=== PATIENT | female | born 1975 | race Caucasian/White ===

== ENCOUNTER 2023-08-30 14:54 | Inpatient (IN) ==
--- NOTE | 2023-08-30 16:03 | Emergency Department Note ---
Impression & Plan Anemia due to blood loss, chronic, Low mean corpuscular volume (MCV) ED Provider Note NAME: GUANAKO HARDEN AGE: 48 SEX: F : 1975 ARRIVES VIA: Walk-In INFORMANT: [Patient][, ] ED PROVIDER(S): [Pedrito Deshpande MD] CHIEF COMPLAINT: Outpatient referral, anemia MEDICAL DECISION MAKING: Patient presents as an outpatient referral due to concern for anemia. IV was established and blood was obtained. The patient is asymptomatic with the patient's hemoglobin today is less than 6. The patient was consented for blood the patient was amenable for inpatient treatment. Patient may have a cause of chronic blood loss anemia as the patient relates that she does have chronic heavy menstrual periods which can last for 7 days. I did speak the on-call hospitalist Dr. Johns and the patient was admitted to the medicine service. Blood work shows a normal white count with a hemoglobin of 5.8 the patient's platelet count is unremarkable. Kidney function unremarkable with normal electrolytes and LFTs troponin not elevated. Critical Care: I have personally spent 35 minutes of critical care time in direct management of this patient. This includes bedside care, interpretation of diagnostic studies, and testing, discussion with consultants, patient, and family members, and other require inpatient management activities. This 35 minutes is in excess of all separately billable procedures. Discussion w/ other healthcare providers: Dr. Johns with inpatient medicine Prior /Outside records reviewed: None Differential diagnosis: Blood loss anemia, iron deficiency anemia, GI bleeding, mass, menstrual period bleeding, nutritional deficiency Diagnostics, as interpreted by me: ECG: None Cardiac monitoring: An order was placed for continuous cardiac monitoring. The monitor shows a rate of 75 with sinus rhythm. Patient was placed on pulse oximetry Medical decision rules: None Imaging studies: None HPI: [Patient presents due to concern for abnormal outpatient blood work. The patient states that she was referred in by Dr. Sanon today due to concern for low hemoglobin. Patient denies any chest pains or shortness of breath. Patient denies any lightheadedness or dizziness. No recent falls or trauma. The patient does not take any blood thinning medications does not take NSAIDs or antiplatelets. Patient denies any rectal bleeding or dark stools. The patient does admit to chronic heavy menstrual bleeding which typically is monthly and last 7 days. Patient denies any fatigability. The patient denies any restrictive diet. Patient states that she did lose maybe 10 or 15 pounds but this was attributable to some reported scar tissue that was noted on EGD may have caused some decreased appetite as the patient did have reflux and did undergo esophageal dilatation and this was back in May. Patient has not had a colonoscopy. The patient states that this follow-up and the blood work was in anticipation of a colonoscopy referral with GI. PAST MEDICAL HISTORY: No pertinent past medical history PAST SURGICAL HISTORY: No pertinent past surgical history SOCIAL HISTORY: Denies alcohol tobacco or drug use HOME MEDICATIONS: See Below ALLERGIES: See Below VITALS: See Below PHYSICAL EXAMINATION: GENERAL: NAD, non-toxic. EYE EXAM: Normal conjunctiva. PERRL, no anisocoria and EOM's grossly intact w/o pain. OROPHARYNX: Moist mucus membranes, grossly normal dentition. NECK: Trachea midline, no stridor. Supple, no nuchal rigidity, no adenopathy, non-tender. No signs of meningismus. FROM of the neck with good chin to chest and neck extension. LUNGS: Clear to auscultation. Normal chest wall mechanics. HEART: NSR, no MRG. ABDOMEN: Abdomen soft, non-tender, no masses, no rebound or guarding. BACK: No CVA TTP. SKIN: No rashes and no bruising. UPPER EXTREMITIES: Upper extremities are grossly normal. LOWER EXTREMITIES: Grossly normal, no edema. NEURO EXAM: A&O x3, cranial nerves II-XII grossly intact, normal speech, moves all 4 extremities. Past Med/Surg History Social History Smoking Status: Never smoker Preferred Language: Palestinian Feels Safe at Home: Yes Allergies Allergies Allergy/AdvReac Type Severity Reaction Status Date / Time strawberry Allergy Intermediate HIVES, Verified 07/07/09 02:59 EMESIS Home Meds Home Medications Medication Instructions Recorded Confirmed Ferrous Sulfate (Iron Supplement *) 325 mg PO DAILY ##0 07/01/07 Multivit/Min/Iron/Fol Ac/Pren 1 tab PO DAILY ##0 07/01/07 ( Vitamin) Results & Data (ED) Vital Signs Vital Signs - 24 hr 08/30/23 15:11 08/30/23 17:21 08/30/23 17:28 Temperature 36.2 C L Temperature Source Temporal Artery Scan Pulse Rate 91 H 84 Pulse Rate [Apical] 91 H Respiratory Rate 20 20 Blood Pressure 166/109 H Blood Pressure [Left Arm] 132/91 Blood Pressure Mean 128 Blood Pressure Mean [Left Arm] 104 Pulse Oximetry 100 100 Oxygen Delivery Method Room Air Room Air Sepsis Recent Fever Within 48 Hours No Sepsis New/Unexplained Change in Mental Status N/A Sepsis Action Taken by Nursing No Action Required 08/30/23 17:30 Temperature 37.0 C Temperature Source Oral Pulse Rate 84 Pulse Rate [Apical] Respiratory Rate 17 Blood Pressure 129/89 Blood Pressure [Left Arm] Blood Pressure Mean 102 Blood Pressure Mean [Left Arm] Pulse Oximetry Oxygen Delivery Method Sepsis Recent Fever Within 48 Hours Sepsis New/Unexplained Change in Mental Status Sepsis Action Taken by Alf Medications Current Medication List: was personally reviewed by me Laboratory Data Attestation: I reviewed the patient's lab results. 08/30/23 15:38 08/30/23 15:38 Lab Results 08/30/23 08/30/23 Range/Units 15:38 16:39 WBC 7.85 (4.8-10.8) K/ul RBC 3.83 L (4.20-5.40) M/uL Hgb 5.8 L* (12.0-16.0) g/dl Hct 22.3 L (37.0-47.0) % MCV 58.2 L (80.0-100.0) fL MCH 15.1 L (25.0-34.0) pg MCHC 26.0 L (32.0-36.0) g/dL RDW Std Deviation 40.1 (36.4-46.3) fL RDW Coeff of Vania 19.9 H (11.5-14.5) % Plt Count 383 (130-400) K/uL MPV 9.4 (9.4-12.4) fL PT 10.9 (9.0-12.0) Seconds INR 1.0 (0.9-1.1) APTT 22 (21-31) Seconds PTT Ratio 0.8 Sodium 137 (136-145) mmol/L Potassium 3.9 (3.5-5.1) mmol/L Chloride 105 (98-107) mmol/L Carbon Dioxide 25 (21-32) mmol/L Anion Gap 7 (3-11) BUN 5 L (6-23) mg/dl Creatinine 0.59 L (0.6-1.2) mg/dl Est Cr Clr Drug Dosing 135.8 ml/min Est GFR ( Amer) 127.4 ml/min Est GFR (Non-Af Amer) 109.9 ml/min BUN/Creatinine Ratio 8.5 L (10-20) Glucose 83 (70-99(Fasting)) mg/dl Calcium 9.3 (8.6-10.3) mg/dl Total Bilirubin 0.4 (0.2-1.0) mg/dl AST 13 (13-39) U/L ALT 7 (7-52) U/L Alkaline Phosphatase 71 (34-104) U/L Troponin I High Sens 2.4 (0-14) pg/ml Total Protein 7.8 (6.0-8.3) gm/dl Albumin 4.2 (3.4-5.0) gm/dl Globulin 3.6 (2.5-4.0) gm/dl Albumin/Globulin Ratio 1.2 (0.9-2) Blood Type B Negative Blood Type Recheck B Negative Antibody Screen NEGATIVE Crossmatch See Detail Discharge Plan Visit Data Chief Complaint: Abnormal Labs/Diagnostic Testing Stated Complaint: ABNORMAL LABS ED Provider: Pedrito Deshpande Discharge Problem: Anemia due to blood loss, chronic, Low mean corpuscular volume (MCV) Forms Stand Alone Forms: [facility] Prescriptions Prescriptions: No Action Ferrous Sulfate (Iron Supplement *) 325 MG tablet 325 mg PO DAILY Qty: 0 Multivit/Min/Iron/Fol Ac/Pren ( Vitamin) tablet 1 tab PO DAILY Qty: 0 Referrals Referrals: PCP,NO [Physician] -
[2023-08-30 16:06] LABS: Hematocrit (blood only) 22.3 % (37.0-47.0); Hemoglobin 5.8 g/dl (12.0-16.0); Mean Corpuscular Hemoglobin 15.1 pg (25.0-34.0); Mean Corpuscular Volume 58.2 fL (80.0-100.0); Mean Platelet Volume 9.4 fL (9.4-12.4); Platelet Count 383 K/uL (130-400); RDW Coefficient of Variation 19.9 % (11.5-14.5); RDW Standard Deviation 40.1 fL (36.4-46.3); Red Blood Count 3.83 M/uL (4.20-5.40); White Blood Count 7.85 K/ul (4.8-10.8)
[2023-08-30 16:15] LABS: Albumin Globulin Ratio 1.2 (0.9-2); Albumin Level 4.2 gm/dl (3.4-5.0); BUN Creatinine Ratio 8.5 (10-20); Bilirubin,Total 0.4 mg/dl (0.2-1.0); Calcium 9.3 mg/dl (8.6-10.3); Creatinine Clr Calc Pharmacy 135.8 ml/min; Est GFR (African American) 127.4 ml/min; Est GFR (Non-African American) 109.9 ml/min; Globulin 3.6 gm/dl (2.5-4.0); Potassium 3.9 mmol/L (3.5-5.1); Total Protein 7.8 gm/dl (6.0-8.3)
[2023-08-30] MEDS ORDERED: SODIUM CHLORIDE 0.9% 250 ML IV PRN (16:21)
[2023-08-30 16:23] LABS: Troponin I High Sensitivity 2.4 pg/ml (0-14)
[2023-08-30 16:33] LABS: Partial Thromboplastin Ratio 0.8; Partial Thromboplastin Time 22 Seconds (21-31); Prothrombin Time 10.9 Seconds (9.0-12.0)
--- NOTE | 2023-08-30 17:54 | History & Physical Report ---
Date of Service August 30, 2023 Assessment & Plan (1) Anemia: Plan: Patient was referred by her primary care doctor after outpatient lab work showed a hemoglobin of 5.8. Reports prolonged menstrual period of 7 days. Repeat CBC showed hemoglobin of 5.8, with low MCV. CMP was unremarkable. Last endoscopy was in May 2023normal esophagus, GE junction, stomach. No previous endoscopy in 01/2023 showed moderate Schatzki's ring which was dilated. Suspect iron deficiency anemia due to chronic menstrual loss. Plan to transfuse 2 unit of packed RBC Obtain serum iron, ferritin, transferrin, folic acid, reticulocyte and vitamin B12 level Transfuse as necessary to keep hemoglobin of 7 She will need gynecology referral as outpatient. Also, will need colonoscopy as outpatient for workup. Plan to start oral iron at discharge. Full code DVT prophylaxis SCDs Time spent evaluating patient, direct bedside care, chart review, placing orders, interpretation of diagnostic studies, discussion with consultants, patient, and family members, as well as other required patient management activities is 60 minutes Please note the above document was generated using voice recognition software. It may contain grammatical, syntax or spelling errors. Any formal questions or concerns about the content, text or information contained within the body of this dictation should be directly addressed to the provider for clarification History of Present Illness Chief Complaint: Low hemoglobin, deferred by patient Primary Care Provider: Shweta Doherty MD History obtained from interview with the patient and chart review. Past medical history of Schatzki's ring status post dilation(last endoscopy in May 2023mild Schatzki's ring) Patient was referred by her primary care doctor after outpatient lab work showed a hemoglobin of 5.8. Patient saw her primary care today for referral of colonoscopy. CBC and CMP was done; patient was found to have hemoglobin of 5.8, microcytic. She was referred to the ED Patient reports occasional headache, mild dizziness occasionally. Denies any chest pain, shortness of breath or fatigue. She does not report any black stool, bright red blood per rectum. She reports prolonged menstrual period 7 days, which are regular. She reports that her menses has been similar for several years. Last endoscopy was in May 2023normal esophagus, GE junction, stomach. No previous endoscopy in 01/2023 showed moderate Schatzki's ring which was dilated. On presentation to the ED, her vitals were stable she was saturating well on room air. Repeat CBC showed hemoglobin of 5.8, with low MCV. CMP was unremarkable. Patient was referred for admission to the hospital Past medical history; as above Past surgical history; no previous surgeries Social historynon-smoker, does not consume alcohol Family historymother with breast cancer, father with colon cancer Allergies Allergy/AdvReac Type Severity Reaction Status Date / Time strawberry Allergy Intermediate HIVES, Verified 07/07/09 02:59 EMESIS Home Medications Medication Instructions Recorded Confirmed Type Ferrous Sulfate (Iron Supplement *) 325 mg PO DAILY ##0 07/01/07 History Multivit/Min/Iron/Fol Ac/Pren 1 tab PO DAILY ##0 07/01/07 History ( Vitamin) Past Med/Surg History Social History Smoking Status: Never smoker Preferred Language: Nepali Feels Safe at Home: Yes Physical Exam Physical Exam: Constitutional: WD/WN, vitals as above, NAD, sitting up in bed, pleasant, conversing easily Respiratory: Bilateral vesicular breath sound Cardiovascular: RRR, no murmur, no edema Vessels: no JVD or carotid bruit Chest: normal inspection of chest Abdomen: normal bowel sounds, soft, nontender, no hepatosplenomegaly Musculoskeletal: no cyanosis or clubbing, extremities motor strength 5/5 Skin: no rashes, warm and dry normal turgor Neurologic: PERRL, EOMI, accommodation nl, no face palsy, no dysarthria CN's II- XI intact bilaterally and moves all extremities Psychiatric: A+Ox3, euthymic affect Results & Data Results & Data Vital Signs (Past 12 Hours) Vital Signs Temp Pulse Pulse Resp BP BP Pulse Ox 08/30/23 17:30 37.0 C 84 17 129/89 08/30/23 17:28 91 H 20 132/91 100 08/30/23 17:21 84 08/30/23 15:11 36.2 C L 91 H 20 166/109 H 100 O2 Del Method 08/30/23 17:30 08/30/23 17:28 Room Air 08/30/23 17:21 08/30/23 15:11 Room Air
--- OUTSIDE RECORDS SUMMARY | 2023-08-30 19:51 | External Medical Summary | Summary of Care ---
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 Name Role Phone Unavailable Primary Care Provider Unavailabl e Reason for Referral * Ancillary Services (Within 10 days (routine)) - Authorized Specialty Diagnoses / Procedures Referred By Contac t Referred To Contact Gastroenterology Diagnoses Colon cancer screening FH: colon cancer in relative diagnosed at >50 years old Caitlyn Sanon MD [address] [place] [address] Referral ID Status Reason Start Date Expiration Date Visits Requested Visits Authorized [id number] Authorized Ancillary Services Required 08/30/[phone] Question Answer Referral Priority Within 10 days (routine) Where should this appointment be scheduled? [facility] Comments ALERT: Do not order for pediatric patients (18 years or younger). Cancel off screen and order PEDS GASTROENTEROLOGY CONSULT (Type: 1 visit only-Evaluate and Treat) The following Pt. Instructions are available: - Gastro Colonoscopy Prep Instructions [[id number]] - Gastro Colonoscopy Prep Instructions (Maltese Version) [[id number]] Go to the Pt. Instructions section within the Visit Navigator to access. Colonoscopy ASGE Guidelines: Average risk screening (begin at age 50, 10 year intervals) FH colon ca--father age 74 ADDITIONAL INFORMATION 1. Is the patient on Coumadin? No 2. Is the patient on Pradaxa? No Reason for Visit * Reason Comments Referral Encounter Details Date Type Department Care Team ([facility] Contact Info) Description 08/30/2023 1:00 PM EDT Office Visit [facility] [address] [place] [address] Caitlyn Sanon MD [address] [facility] [place] [address] Colon cancer screening*; Schatzki's ring; Gastroesophageal reflux disease without esophagitis; FH: colon cancer in relative diagnosed at >50 years old; BMI 30.0-30.9,adult; Onychomycosis Allergies No known active allergiesdocumented as of this encounter (statuses as of 08/30/2023) Medications Medication Sig Dispensed Refills Start Date End Date Status Omeprazole 20 MG Oral Capsule Delayed Release (PriLOSEC) Take 1 Capsule by mouth in the morning. 90 Capsule 3 02/05/2023 Active Ciclopirox 8 % External SolutionIndications: Onychomycosis Apply over nail and surrounding skin. Apply daily over previous coat. After seven (7) days, may remove with alcohol and continue cycle. 6.6 mL 0 08/30/2023 Active Naproxen 500 MG Oral Tablet (Naprosyn)Indication s:Acute costochondritis Take 1 Tablet by mouth 2 times a day as needed for Pain. With food 40 Tablet 1 01/30/2023 08/30/19 24 Discontinu ed(Patient preference /discontin uation) documented as of this encounter (statuses as of 08/30/2023) Active Problems No known active problems documented as of this encounter (statuses as of 08/30/2023) Resolved Problems Problem Noted Date Diagnosed Date Resolved Date Encounter for supervision of other normal 11/21/2006 08/30/2023 Overview: ICD-10 update of inactive term NONE 08/05/2003 08/30/2023 documented as of this encounter (statuses as of 08/30/2023) Immunizations Name Administration Dates Next Due TDAP (age 10 and older)(Boostrix) 03/19/2022 documented as of this encounter Social History Tobacco Use Types Packs/Day Years Used Date Smoking Tobacco: Never Smokeless Tobacco: Never Alcohol Use Standard Drinks/Week Comments No 0 (1 standard drink = 0.6 oz pur e alcohol) Sex and Gender Information Value Date Recorded Sex Assigned at Not on file Gender Identity Not on file Sexual Orientation Not on file Job Start Date Occupation Industry Not on file Not on file Not on file documented as of this encounter Last Filed Vital Signs Vital Sign Reading Time Taken Comments Blood Pressure 104/62 08/30/2023 1:00 PM EDT Pulse 85 08/30/2023 1:00 PM EDT Temperature 36.8 C (98.3 F) 08/30/2023 1:00 PM ED T Respiratory Rate 16 08/30/2023 1:00 PM EDT Oxygen Saturation 99% 08/30/2023 1:00 PM EDT Inhaled Oxygen Concentration - - Weight 91.8 kg (202 lb 6.4 oz) 08/30/2023 1:00 P M EDT Height 167.6 cm (5' 6") 08/30/2023 1:00 PM EDT Body Mass Index 32.67 08/30/2023 1:00 PM EDT documented in this encounter Progress Notes * Caitlyn Sanon MD - 08/30/2023 1:08 PM EDT SUBJECTIVE: Monae Tamez is a 48 year old female. Chief Complaint Patient presents with Referral Nursing Notes: Malika Taylor, GAYATHRI 08/30/23 1303 Signed Patient presents today to discuss gi issues and the need for a colonoscopy. HPI: Patient presents today for acute appointment requesting a referral for colonoscopy. States wasseen in the clinic for annual exam in May and wants to be scheduled when she had her endoscopybut was not. History of dysphagia, reflux, endoscopy in January showed Schatzki's ring which was dilated, started PPI, repeat EGD in May was normal and had empiric dilation done, advised to continue PPI indefinitely. Since then she is noted improved symptoms, no dysphagia. Denies abdominal pain or change in bowel habits. No blood in the stool or black tarry stool. Her father was recently diagnosed with some colon cancer at age of 74, no other family history. Shehas been intentionally trying to lose weight. Her insurance changes in October and wanted to get the colonoscopy before that. EGD 02/05/2023-moderate Schatzki's ring dilated, mild gastritis, no biopsy-to use PPI, follow reflux precautions EGD 05/22/2023-normal, dilated, biopsied-nml Pap smear negative May 2022. Previous labs reviewed as noted below. With the end of the visit she also complains of a toenail fungus on her left 2nd and 5th toenails and has tried OTC medications without benefit, no itching or pain Wt Readings from Last 4 Encounters: 08/30/23 91.8 kg (202 lb 6.4 oz) 05/24/23 92.5 kg (204 lb) 05/15/23 93 kg (205 lb) 01/31/23 97.8 kg (215 lb 9.6 oz) Hemoglobin Results: Lab Results Component Value Date/Time HGB 10.2 (L) 03/23/2007 01:42 PM HGB 10.9 (L) 11/21/2006 02:46 PM HGB 11.4 (L) 12/30/2003 11:55 AM TSH Results: Lab Results Component Value Date/Time TSH - DICKSONER 1.32 08/05/2003 02:54 PM ALT Results: No results found for: "ALT" Component Latest Ref Rng 03/19/2022 Triglycerides <=174 mg/dL 103 Cholesterol <200 mg/dL 139 HDL Cholesterol >49 mg/dL 45 (L) Non-HDL Cholesterol <=159 mg/dL 94 LDL Cholesterol <=129 mg/dL 73 Glucose 70 - 120 mg/dL 91 Hepatitis C Antibody Negative Negative Has not had flu vaccine, defers, to check if she had hepatitis-B vaccine in the past Immunization History Administered Date(s) Administered TDAP (age 10 and older)(Boostrix) 03/19/2022 Current Outpatient Medications Medication Sig Dispense Refill Omeprazole 20 MG Oral Capsule Delayed Release (PriLOSEC) Take 1 Capsule by mouth in the morning. 90Capsule 3 Naproxen 500 MG Oral Tablet (Naprosyn) Take 1 Tablet by mouth 2 times a day as needed for Pain. With food (Patient not taking: Reported on 02/05/2023) 40 Tablet 1 No current facility-administered medications for this visit. Review of patient's allergies indicates: No Known Allergies OBJECTIVE: BP 104/62 | Pulse 85 | Temp 36.8 C (98.3 F) (Tympanic) | Resp 16 | Ht 1.676 m (5' 6") | Wt 91.8kg (202 lb 6.4 oz) | SpO2 99% | BMI 32.67 kg/m | BSA 2.07 m PHYSICAL EXAM: General: alert, healthy, no distress, well developed Neck: supple, no adenopathy, thyroid Not enlarged without nodularity Heart: regular rhythm and rate,No murmurs. Lungs: lungs clear to auscultation Extremities: no edema Abdomen: Soft, non-tender, normal bowel sounds, no masses or organomegaly Ext--left 2nd and 5th toe distal OM ASSESSMENT/PLAN: Colon cancer screening (Primary) - COLONOSCOPY, GI REFERRAL OP - CBC WITH WBC DIFFERENTIAL; Future; Expected date: 08/30/2023 - COMPREHENSIVE METABOLIC PANEL; Future; Expected date: 08/30/2023 Schatzki's ring - CBC WITH WBC DIFFERENTIAL; Future; Expected date: 08/30/2023 - COMPREHENSIVE METABOLIC PANEL; Future; Expected date: 08/30/2023 Gastroesophageal reflux disease without esophagitis - CBC WITH WBC DIFFERENTIAL; Future; Expected date: 08/30/2023 - COMPREHENSIVE METABOLIC PANEL; Future; Expected date: 08/30/2023 FH: colon cancer in relative diagnosed at >50 years old - COLONOSCOPY, GI REFERRAL OP - CBC WITH WBC DIFFERENTIAL; Future; Expected date: 08/30/2023 BMI 30.0-30.9,adult - COMPREHENSIVE METABOLIC PANEL; Future; Expected date: 08/30/2023 Onychomycosis - Ciclopirox 8 % External Solution; Apply over nail and surrounding skin. Apply daily over previouscoat. After seven (7) days, may remove with alcohol and continue cycle. Keep scheduled appointment in May for annual exam. Follow Up: Return if symptoms worsen or fail to improve. (This note was completed using the dictation program Fluency Direct. As such, there may be misspellings, word substitutions, or other variations that should not change the essence of the clinical content of this encounter note. If there is need for further clarification, please direct questions to the provider listed above.) Patient and / caregiver verbalize understanding of above instructions and agrees with plan of care. Caitlyn Sanon MD 08/30/2023 documented in this encounter Nursing Notes * Malika Taylor LPN - 08/30/2023 12:59 PM EDT Patient presents today to discuss gi issues and the need for a colonoscopy. documented in this encounter Plan of Treatment Upcoming Encounters Date Type Department Care Team (Late st Contact Info) Description 05/07/2024 9:20 AM EST Office Visit [facility] [address] [place] [address] Shweta Doherty MD [address] [place] [address] 05/07/2024 10:00 AM EST Appointment Radiology, [id number] [place] [address] Pending Results Name Type Priority Associated Diagnoses Date /Time CBC WITH WBC DIFFERENTIAL Lab Routine Colon cancer screening Schatzki's ring Gastroesophageal reflux disease without esophagitis FH: colon cancer in relative diagnosed at >50 years old 08/30/2023 1:38 PM EDT COMPREHENSIVE METABOLIC PANEL Lab Routine Colon cancer screening Schatzki's ring Gastroesophageal reflux disease without esophagitis BMI 30.0-30.9,adult 08/30/2023 1:38 PM EDT Scheduled Orders Name Type Priority Associated Diagnoses Orde r Schedule CBC WITH WBC DIFFERENTIAL Lab Routine Colon cancer screening Schatzki's ring Gastroesophageal reflux disease without esophagitis FH: colon cancer in relative diagnosed at >50 years old Expected: 08/30/2023 (Approximate), Expires: 08/29/2024 COMPREHENSIVE METABOLIC PANEL Lab Routine Colon cancer screening Schatzki's ring Gastroesophageal reflux disease without esophagitis BMI 30.0-30.9,adult Expected: 08/30/2023 (Approximate), Expires: 08/29/2024 Scheduled Referrals Name Type Priority Associated Diagnoses Orde r Schedule COLONOSCOPY, GI REFERRAL OP Referral Within 10 days (routine) Colon cancer screening FH: colon cancer in relative diagnosed at >50 years old Ordered: 08/30/2023 Health Maintenance Due Date Last Done Comments Hepatitis B (1 of 3 - 19+ 3-dose series) 1996 Cologuard 2022 Colonoscopy 2022 Colorectal Cancer Screening 2022 Fecal Occult Blood Test 2022 Sigmoidoscopy 2022 COVID-19 Vaccine ( season) 2023 Influenza Vaccine (FLU shot) (#1) 2023 PAP SMEAR-ANNUAL AGES 18-100 05/03/202307/2021, 11/21/2006, 08/05/2003, Additional history exists Mammogram 05/06/2024 05/06/2023, 05/02, 05/20/2022, Additional history exists Depression Screening 05/24/2024 05/24/2023 Diabetes Screening 03/19/2025 03/19/2022 Lipid Panel 03/19/2027 03/19/2022 DTaP,Tdap,and Td Vaccines (2 - Td or Tdap) 03/19/2032 03/19/2022 GARDASIL-HPV IMMUNIZATION SERIES Aged Out No longer eligible based on patient's age to complete this topic MENINGOCOCCAL (MENACTRA/MENVEO) Aged Out No longer eligible based on patient's age to complete this topic Pneumococcal Vaccine: Pediatrics (0 to 5 Years) and At-Risk Patients (6 to 64 Years) Aged Out No longer eligible based on patient's age to complete this topic documented as of this encounter Medical Devices Not on filedocumented as of this encounter Visit Diagnoses Diagnosis Colon cancer screening- Primary Special screening for malignant neoplasms, colon Schatzki's ring Congenital tracheoesophageal fistula, esophageal atresia and stenosis Gastroesophageal reflux disease without esophagitis Esophageal reflux FH: colon cancer in relative diagnosed at >50 years old BMI 30.0-30.9,adult Body Mass Index 30.0-30.9, adult Onychomycosis Dermatophytosis of nail documented in this encounter
--- OUTSIDE RECORDS SUMMARY | 2023-08-30 19:51 | External Medical Summary | Summary of Care ---
Author Name Unknown Organization [facility] Address [address] [place] [address] Phone [phone] Care Team Providers Care Manager Supply Chain Name Role Phone Unavailable Primary Care Provider Unavailabl e Reason for Visit * Reason Onset Date Comments Test Results 08/30/2023 Encounter Details Date Type Department Care Team (Late st Contact Info) Description 08/30/2023 Telephone Family Practice [facility] [address] [place] [address] Caitlyn Sanon MD [address] [place] [address] Test Results Allergies No known active allergiesdocumented as of this encounter (statuses as of 08/30/2023) Medications Medication Sig Dispensed Refills Start Date End Date Status Omeprazole 20 MG Oral Capsule Delayed Release (PriLOSEC) Take 1 Capsule by mouth in the morning. 90 Capsule 3 02/05/2023 Active Ciclopirox 8 % External SolutionIndication s:Onychomycosis Apply over nail and surrounding skin. Apply daily over previous coat. After seven (7) days, may remove with alcohol and continue cycle. 6.6 mL 0 08/30/2023 Active documented as of this encounter (statuses as [...] on file documented as of this encounter Miscellaneous Notes * Telephone Encounter - Malika Taylor LPN - 08/30/2023 2:36 PM EDT I spoke to the patient and made her aware of dr. Sanon's message. She v/u and will comply. * Telephone Encounter - Malika Kahn OSA - 08/30/2023 2:33 PM EDT Reason for patient's call: Test Results Caller was transferred to Malika at the nurse line. * Telephone Encounter - Malika Taylor LPN - 08/30/2023 2:27 PM EDT LMOM for pt to return call to return call to office. Please make her aware of the message below. * Telephone Encounter - Caitlyn Sanon MD - 08/30/2023 2:17 PM EDT Lab called with a critical hemoglobin of 5.8, platelets 413, significant hypochromic microcytic indices--indicating severe iron-deficiency,, few schistocytes, ovalocytes. CMP is pending. --would recommend go to ER for further evaluation and treatment. Fh colon ca in her dad recently documented in this encounter Plan of Treatment Upcoming Encounters Date Type Department Care Team (Late st Contact Info) Description 05/07/2024 9:20 AM EST Office Visit Family [facility] [address] [place] [address] Shweta Doherty MD [address] [place] [address] 05/07/2024 10:00 AM EST Appointment Radiology, [facility] [address] [place] [address] Health Maintenance Due Date Last Done Comments [...] exists Depression Screening 05/24/2024 05/24/2023 Diabetes Screening 08/29/2026 08/30/2023, 03/19/2022 Lipid Panel 03/19/2027 03/19/2022 DTaP,Tdap,and Td [...]
--- OUTSIDE RECORDS SUMMARY | 2023-08-30 19:51 | External Medical Summary | Summary of Care ---
Author Name Unknown Organization [facility] Address [address] [facility] [place] [address] Phone [phone] Care Team Providers Care Geography Department Chair Name Role Phone Unavailable Primary Care Provider Unavailabl e Reason for Visit * Auth/Cert Specialty Diagnoses / Procedures Referred By Ernesto t Referred To Contact Diagnoses Pharyngeal dysphagia Pharyngeal dysphagia [R13.13] Procedures EGD, FLEXIBLE, DIAGNOSTIC ESOPHAGOGASTRODUODENOSCOPY (EGD), FLEXIBLE, TRANSORAL, DIAGNOSTIC Referral ID Status Reason Start Date Expiration Date Visits Re quested Visits Authorized [id number] Encounter Details Date Type Department Care Team (Latest Contact Info) Description 05/22/2023 12:58 PM EST - 05/22/2023 3:26 PM EST Hospital Encounter ENDO [facility], Endoscopy Room [facility] [address] [facility] [place] [phone] Eliz Hayden MD [address] [place] [address] [place] [phone] Upper GI Endoscopy Discharge Disposition: Home - Self Care Allergies No known active allergiesdocumented as of this encounter (statuses as of 05/23/2023) Medications Medication Sig Dispensed Refills Start Date End Date Status Naproxen 500 MG Oral Tablet (Naprosyn)Indications :Acute costochondritis Take 1 Tablet by mouth 2 times a day as needed for Pain. With food 40 Tablet 1 01/30/2023 Active Additional Information Patient not taking.Reported on 02/05/2023 Omeprazole 20 MG Oral Capsule Delayed Release (PriLOSEC) Take 1 Capsule by mouth in the morning. 90 Capsule 3 02/05/2023 Active documented as of this encounter (statuses as of 05/23/2023) Active Problems Problem Noted Date Diagnosed Date Encounter for supervision of other normal pregna ncy 11/21/2006 Overview: ICD-10 update of inactive term NONE 08/05/2003 documented as of this encounter (statuses as of 05/23/2023) Immunizations Name Administration Dates Next Due TDAP [...] Sign Reading Time Taken Comments Blood Pressure 108/71 05/22/2023 3:00 PM EST Pulse 81 05/22/2023 3:00 PM EST Temperature 36.5 C (97.7 F) 05/22/2023 3:00 PM ES T Respiratory Rate 16 05/22/2023 3:00 PM EST Oxygen Saturation 100% 05/22/2023 3:00 PM EST Inhaled Oxygen Concentration - - Weight 93 kg (205 lb) 05/15/2023 9:27 AM EST Height 167.6 cm (5' 6") 05/15/2023 9:27 AM EST Body Mass Index 33.09 05/15/2023 9:27 AM EST documented in this encounter H&P Notes * Eliz Hayden MD - 05/22/2023 2:21 PM EST Endoscopy Pre-Procedure Assessment Name: Monae Tamez Date: 05/22/2023 Time: 2:21 PM Procedure(s): Upper GI Endoscopy; with Indication(s) of dysphagia Endoscopy Pre-Procedure Assessment: Prior to the procedure, the patient is identified. The patient's history, medications and allergieshave been reviewed. The patient is competent. The risks and benefits of the proposed procedure and the planned sedation have been discussed with the patient. All questions have been answered and informed consent for the procedure has been obtained. Prior to Admission medications Medication Sig Last Dose Discont. Omeprazole 20 MG Oral Capsule Delayed Release (PriLOSEC) Take 1 Capsule by mouth in the morning. 05/21/2023 Naproxen 500 MG Oral Tablet (Naprosyn) Take 1 Tablet by mouth 2 times a day as needed for Pain. With food Patient not taking: Reported on 02/05/2023 Not Taking Review of patient's allergies indicates: No Known Allergies BP 114/76 | Pulse 74 | Temp 36 C (96.8 F) (Tympanic) | Resp 16 | Ht 1.676 m (5' 6") | Wt 93 kg (205 lb) | SpO2 100% | BMI 33.09 kg/m | BSA 2.08 m Physical Exam: Mental Status Examination: alert and oriented. Resp: normal ASA Grade: II - A patient with mild systemic disease. Abdomen: soft This patient has undergone a preprocedural evaluation. A determination has been made to proceed with the planned procedure under [facility] procedural guidelines and the [facility] Non-Emergent, Elective Medical Services and Treatment Recommendations (published on 09-07-19). The community and hospital prevalence of COVID-19 has been discussed as well as this patient's specific risks associated with SARS-CoV-19 infection. Based upon the clinical acuity and patient-specific care considerations, this procedure is deemed a Tier III - Procedures at little or no risk for clinical deterioration (example - cosmetic). After reviewing the risks and benefits of endoscopy including infection, bleeding, perforation, missed lesions, the patient is deemed in satisfactory condition to undergo the procedure. The anesthesia plan is to use general anesthesia. Eliz Hayden MD 05/22/2023 documented in this encounter Procedure Notes * Edwardo Lamas CRNP - 05/22/2023 2:16 PM ESTAssociated Order(s): UPPER GI ENDOSCOPY [facility] Patient Name: Monae Tamez Procedure Date: 05/22/2023 2:16 PM Date of : 1975 Admit Type: Outpatient Note Status: Finalized Date of : 1975 Admit Type: Outpatient Age: 48 Room: Endo 3 Gender: Female Note Status: Finalized Procedure: Upper GI endoscopy Indications: Dysphagia Providers: Eliz Hayden MD Referring MD: Edwardo Lamas Medicines: See the Anesthesia note for documentation of the administered medications Complications: No immediate complications. Procedure: Pre-Anesthesia Assessment: - Patient identification and proposed procedure were verified prior to the procedure by the physician, the nurse and the anesthesiologist. The procedure was verified in the pre-procedure area. - Prior to the procedure, a History and Physical was performed, and patient medications, allergies and sensitivities were reviewed. The patient's tolerance of previous anesthesia was reviewed. - The risks and benefits of the procedure and the sedation options and risks were discussed with the patient. All questions were answered and informed consent was obtained. - The medication list for this patient has been reviewed prior to the procedure and has been determined that the patient may proceed with the planned study. Any medication changes made as a result of the findings of this procedure have been discussed with the patient and/or kiosk sales representative at the time of discharge from the department. - After obtaining informed consent, the endoscope was passed under direct vision. All instruments were visually inspected immediately before and after removal from the patient to ensure they are fully intact. Throughout the procedure, the patient's blood pressure, pulse, and oxygen saturations were monitored continuously. The [id number]-[id number] Endoscope ([id number]) was introduced through the mouth and advanced to the second part of duodenum. The upper GI endoscopy was accomplished without difficulty. The patient tolerated the procedure well. Findings & Specimens: The examined esophagus appeared normal - a mild Schatzki's ring was noted. A guidewire was placed and the scope was withdrawn. Dilation was performed with a Savary dilator with no resistance at 48 Fr. The dilation site was examined and showed no change. Biopsies were taken with a cold forceps for histology. The pathology specimen was placed into Bottle Number 1. Verification of patient identification for the specimen was done by the physician and nurse using the patient's name and medical record number. The gastroesophageal junction was found at 40 cm from the incisors and appeared normal. The entire examined stomach appeared normal. The duodenal bulb and second portion of the duodenum appeared normal. Impression: - Normal esophagus. Dilated. Biopsied. - Normal GE junction. - Normal stomach. - Normal duodenal bulb and second portion of the duodenum. Recommendation: - Await pathology results. Eliz Hayden MD 05/22/2023 2:45:08 PM This report has been signed electronically. documented in this encounter Nursing Notes * Minerva Mayo RN - 05/22/2023 3:25 PM EST Patient is alert, pain free, passing flatus and tolerating po fluids prior to discharge. Patient has been visited by Dr. Hayden. Patient has received and demonstrates understanding of discharge instructions. Patient ambulated to private auto accompanied by endo staff. * Marj Velásquez RN - 05/22/2023 2:45 PM EST Specimen(s) and location(s) verified with physician post procedure 2:45 PM Marj Velásquez RN See anesthesia record for medication administered during procedure. Marj Velásquez RN Post-procedure scope cleaning began at bedside by endo orthopedic technician Pt. Tolerated endoscopy well, no complications, soundly asleep, abdomen soft, transported to post endoscopy via stretcher by SALES DEVELOPMENT SPECIALIST. * Lucy Dahl RN - 05/22/2023 2:05 PM EST The following pt discharge instructions reviewed with pt prior to prodedure: No driving today. No alcohol today. No signing of legal documents. Rest as much as possible today and can return to normal activities tomorrow. No operating any heavy equipment today. Diet as tolerated. Pt verbalized understanding. documented in this encounter Plan of Treatment Upcoming Encounters Date Type Department Care Team (Late st Contact Info) Description 05/24/2023 9:20 AM EST Office Visit [facility] [address] [address] SeptemberPedrito MD [address], [place] [id number] Pending Results Name Type Priority Associated Diagnoses Date /Time SURGICAL PATHOLOGY Pathology Routine Pharyngeal dysphagia 05/22/2023 2:44 PM EST Scheduled Orders Name Type Priority Associated Diagnoses Orde r Schedule SURGICAL PATHOLOGY Pathology Routine Pharyngeal dysphagia Release Upon Ordering for 1 Occurrences starting 05/22/2023, 1 completed Health Maintenance Due Date Last Done Comments Hepatitis B (1 of 3 - 3-dose series) 1975 COVID-19 Vaccine (#1) 1975 Depression Screening 1989 Cologuard 2022 Colonoscopy 2022 Colorectal Cancer Screening 2022 Fecal Occult Blood Test 2022 Sigmoidoscopy 2022 Influenza Vaccine (FLU shot) (#1) 2023 PAP SMEAR-ANNUAL AGES 18-100 05/03/202307/2021, 11/21/2006, 08/05/2003, Additional history exists Mammogram 05/06/2024 05/06/2023, 05/02, 05/03/2022 Diabetes Screening 03/19/2025 03/19/2022 Lipid Panel 03/19/2027 [...] Not on filedocumented as of this encounter Procedures Procedure Name Priority Date/Time Associated Diagnosis Comments UPPER GI ENDOSCOPY 05/22/2023 2: 16 PM EST documented in this encounter Results * UPPER GI ENDOSCOPY (05/22/2023 2:16 PM EST) 05/22/2023 2:16 PM EST Narrative Procedure Note Edwardo Lamas CRNP - 05/22/2023 2:16 PM EST [facility] Patient Name: Monae Tamez Procedure Date: 05/22/2023 2:16 PM Date of : 1975 Admit Type: Outpatient Note Status:Finalized Date of : 1975 Admit Type: Outpatient Age: 48 Room: Endo 3 Gender: Female Note Status: Finalized Procedure: Upper GI endoscopy Indications: Dysphagia Providers: Eliz Hayden MD Referring MD: Edwardo Lamas Medicines: See the Anesthesia note for documentation of theadministered medications Complications: No immediate complications. Procedure: Pre-Anesthesia Assessment: - Patient identification and proposed procedurewere verified prior to the procedure by the physician, the nurse and theanesthesiologist. The procedure was verified in the pre-procedure area. - Prior to the procedure, a History and Physicalwas performed, and patient medications, allergies and sensitivities werereviewed. The patient's tolerance of previous anesthesia was reviewed. - The risks and benefits of the procedure and thesedation options and risks were discussed with the patient. All questions wereanswered and informed consent was obtained. - The medication list for this patient has beenreviewed prior to the procedure and has been determined that the patient may proceed with the plannedstudy. Any medication changes made as a result of the findings of this procedure have beendiscussed with the patient and/or kiosk sales representative at the time of discharge from thedepartment. - After obtaining informed consent, the endoscopewas passed under direct vision. All instruments were visually inspected immediatelybefore and after removal from the patient to ensure they are fully intact. Throughout the procedure, the patient's bloodpressure, pulse, and oxygen saturations were monitored continuously. The GIF-[id number] ([id number]) was introduced through the mouth and advanced to the second part ofduodenum. The upper GI endoscopy was accomplished without difficulty. The patienttolerated the procedure well. Findings & Specimens: The examined esophagus appeared normal - a mild Schatzki's ring wasnoted. A guidewire was placed and the scope was withdrawn. Dilation was performed with a Savary dilatorwith no resistance at 48 Fr. The dilation site was examined and showed no change. Biopsies were takenwith a cold forceps for histology. The pathology specimen was placed into Bottle Number 1. Verificationof patient identification for the specimen was done by the physician and nurse using the patient's nameand medical record number. The gastroesophageal junction was found at 40 cm from the incisorsand appeared normal. The entire examined stomach appeared normal. The duodenal bulb and second portion of the duodenum appearednormal. Impression: - Normal esophagus. Dilated. Biopsied. - Normal GE junction. - Normal stomach. - Normal duodenal bulb and second portion of theduodenum. Recommendation: - Await pathology results. Eliz Hayden MD 05/22/2023 2:45:08 PM This report has been signed electronically. Dangeloradhames Adams [facility] documented in this encounter Visit Diagnoses Diagnosis Pharyngeal dysphagia Dysphagia, pharyngeal phase documented in this encounter Administered Medications Inactive Administered Medications - up to 3 most recent administrations Medication Order MAR Action Action Date Dose Rate Site Acetaminophen (Tylenol) tab 650 mg 650 mg, Oral, PRN Pain, Mild, Starting on Rosemarie 05/22/23 at 1445, Until Rosemarie 05/22/23 at 1926, For 1 dose, Maximum of 4 grams (4000 mg) per day., Post-op isolyte-S pH 7.4 infusion Intravenous, Plasma-LYTE 148, isolyte-S, and isolyte-S pH 7.4 are considered equivalent - including for MAR barcode scanning., CONTINUOUS, Starting on Rosemarie 05/22/23 at 1445, Until Rosemarie 05/22/23 at 1926, Pre-Op Restarted 05/22/2023 2:48 PM EST Continue from Pre-Op 05/22/2023 2:34 PM EST 100 mL/hr New Bag 05/22/2023 2:19 PM EST 1,000 mL 100 mL/hr documented in this encounter Active and Recently Administered Medications Times are shown in EST. Continuous Medication Order 05/20/2023 05/21/2023 05/22/2023 isolyte-S pH 7.4 infusion Intravenous, Plasma-LYTE 148, isolyte-S, and isolyte-S pH 7.4 are considered equivalent - including for MAR barcode scanning., CONTINUOUS, Starting on Rosemarie 05/22/23 at 1445, Until Rosemarie 05/22/23 at 1926, Pre-Op 1419 (New Bag - Prov ider: Lucy Dahl RN)1434 (Continue from Pre-Op - Provider: Arely Cote CRNA)1447 (Paused - Provider: Arely Cote CRNA - Comment: Switch to gravity)1448 (Restarted - Provider: Arely Cote CRNA) PRN Medication Order 05/20/2023 05/21/2023 05/22/2023 Acetaminophen (Tylenol) tab 650 mg 650 mg, Oral, PRN Pain, Mild, Starting on Rosemarie 05/22/23 at 1445, Until Rosemarie 05/22/23 at 1926, For 1 dose, Maximum of 4 grams (4000 mg) per day., Post-op documented in this encounter
--- OUTSIDE RECORDS SUMMARY | 2023-08-30 19:51 | External Medical Summary | Summary of Care ---
Author Name Unknown Organization [facility] Address [address] [place] [address] Phone [phone] Care Team Providers Care Director Automotive Name Role Phone Unavailable Primary Care Provider Unavailabl e Reason for Visit * Reason Comments Physical-Exam Pt here for annual C PE , has joints in fingers and hard to move and also ankles and knees hurt Encounter Details Date Type Department Care Team (Late st Contact Info) Description 05/24/2023 9:20 AM EST Office Visit [facility] [address] [place] [address] September, Pedrito Rebolledo MD [address], [place] [phone] Encounter for routine preventive care for patient older than 28 days*; Generalized osteoarthritis; Schatzki's ring; Gastroesophageal reflux disease without esophagitis; Screening for depression Allergies No known active allergiesdocumented as of this encounter (statuses as of 05/24/2023) Medications Medication Sig Dispensed Refills Start Date [...] as of this encounter (statuses as of 05/24/2023) Active Problems Problem Noted Date Diagnosed Date Encounter for supervision of other normal pregna ncy 11/21/2006 Overview: ICD-10 update of inactive term NONE 08/05/2003 documented as of this encounter (statuses as of 05/24/2023) Immunizations Name Administration Dates Next Due TDAP (age 10 and older)(Boostrix) 03/19/2022 documented as of this encounter Social History Tobacco Use Types Packs/Day Years Used Date Smoking Tobacco: Never Smokeless Tobacco: Never Tobacco Cessation:Counseling Given: Not Answered Alcohol Use Standard Drinks/Week Comments No 0 [...] Sign Reading Time Taken Comments Blood Pressure 100/50 05/24/2023 9:17 AM EST Pulse 80 05/24/2023 9:17 AM EST Temperature 36.6 C (97.8 F) 05/24/2023 9:17 AM ES T Respiratory Rate 16 05/24/2023 9:17 AM EST Oxygen Saturation - - Inhaled Oxygen Concentration - - Weight 92.5 kg (204 lb) 05/24/2023 9:17 AM EST Height 167.6 cm (5' 6") 05/24/2023 9:17 AM EST Body Mass Index 32.93 05/24/2023 9:17 AM EST documented in this encounter Progress Notes * Pedrito Williamson MD - 05/24/2023 9:21 AM EST Images from the original note were not included. Assessment and Plan 1. Generalized osteoarthritis Generalized osteoarthritis with symptoms most noted in the small joints of the hands in the knees. Recommend Tylenol/ibuprofen by mouth and Voltaren gel as needed to assist with symptoms. No other systemic signs that would indicate an autoimmune process. 2. Schatzki's ring Status post dilation on 05/22/2023. 3. Gastroesophageal reflux disease without esophagitis On omeprazole daily. 4. Screening for depression Negative. - DEPRESSION SCREENING PERFORMED 5. Encounter for routine preventive care for patient older than 28 days Up-to-date on Pap and mammogram. Recommend colon cancer screening with an upcoming EGD. Declined flu and COVID vaccines. Recommend patient follows with dentistry every 6 months for cleaning. Recommend dash/Mediterranean diet to obtain healthy weight. Seatbelt always. Sunscreen when in the sun. Wrap-Up Follow up yearly. History of Present Illness The patient is a 48 year old female who presents for yearly physical. 48-year-old female who presents for her yearly physical. She states she feels well and denies chestpain shortness on breath. Her current medications include omeprazole for GERD. She does have a Schatzki's ring which was dilated on 05/22/2023. There is plans for another EGD for possible dilation in4 months. She also complains of some generalized joint pains that I suspect is generalized osteoarthritis. 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 Her knees and the small joints of her fingers are those that give her the most stiffness and pain. She was up-to-date on mammogram and Pap smear. She was due for colon cancer screening, however, we will get this done with 1 of her upcoming EGDs. She has no documented flu or COVID vaccines. Physical Exam Vitals: 05/24/23 0917 Temp: 36.6 C (97.8 F) Pulse: 80 Resp: 16 BP: 100/50 BMI: 32.94 Physical Exam Physical Exam Vitals reviewed. Constitutional: General: She is not in acute distress. HENT: Right Ear: Tympanic membrane normal. There is no impacted cerumen. Left Ear: Tympanic membrane normal. There is no impacted cerumen. Nose: No congestion or rhinorrhea. Eyes: General: No scleral icterus. Pupils: Pupils are equal, round, and reactive to light. Cardiovascular: Rate and Rhythm: Normal rate and regular rhythm. Heart sounds: No murmur heard. Pulmonary: Effort: Pulmonary effort is normal. No respiratory distress. Breath sounds: Normal breath sounds. No wheezing. Abdominal: General: There is no distension. Palpations: Abdomen is soft. Tenderness: There is no abdominal tenderness. Musculoskeletal: Cervical back: Neck supple. Right lower leg: No edema. Left lower leg: No edema. Lymphadenopathy: Cervical: No cervical adenopathy. Skin: General: Skin is warm and dry. Findings: No rash. Neurological: General: No focal deficit present. Mental Status: She is alert. documented in this encounter Plan of Treatment Upcoming Encounters Date Type Department Care Team (Late st Contact Info) Description 05/07/2024 9:20 AM EST Office Visit Family [facility] [address] [place] [address] Shweta Doherty MD [address] [place] [id number] 05/07/2024 10:00 AM EST Appointment Radiology, [id number] [place] [address] Health Maintenance Due Date Last Done Comments Hepatitis B (1 of 3 - 3-dose series) 1975 COVID-19 Vaccine (#1) 1975 Cologuard 2022 Colonoscopy 2022 Colorectal Cancer Screening 2022 Fecal Occult Blood Test 2022 Sigmoidoscopy 2022 Influenza Vaccine (FLU shot) (#1) 2023 PAP SMEAR-ANNUAL AGES 18-100 05/03/202307/2021, 11/21/2006, 08/05/2003, Additional history exists Mammogram 05/06/2024 05/06/2023, 05/02, 05/03/2022 Depression Screening 05/24/2024 05/24/2023 Diabetes Screening 03/19/2025 [...] as of this encounter Visit Diagnoses Diagnosis Encounter for routine preventive care for patient older than 28 days- Primary Generalized osteoarthritis Generalized osteoarthrosis, unspecified site Schatzki's ring Congenital tracheoesophageal fistula, esophageal atresia and stenosis Gastroesophageal reflux disease without esophagitis Esophageal reflux Screening for depression documented in this encounter
--- OUTSIDE RECORDS SUMMARY | 2023-08-30 19:51 | External Medical Summary | Summary of Care ---
Author Name Unknown Organization [facility] Address [address] [facility] [place] [address] Phone [phone] Care Team Providers Care Wood Grinder Operator Name Role Phone Unavailable Primary Care Provider Unavailabl e Encounter Details Date Type Department Care Team (Late st Contact Info) Description 05/15/2023 Telephone OR [facility], Operating Room [facility] [address] [facility] [place] [phone] Eliz Hayden MD [address] [place], [place] [address] [address] Allergies No known active allergiesdocumented as of this encounter (statuses as of 08/14/2023) Medications Medication Sig Dispensed Refills Start Date [...] as of this encounter (statuses as of 08/14/2023) Active Problems Problem Noted Date Diagnosed Date Encounter for supervision of other normal pregna ncy 11/21/2006 Overview: ICD-10 update of inactive term NONE 08/05/2003 documented as of this encounter (statuses as of 08/14/2023) Immunizations Name Administration Dates Next Due TDAP [...] encounter Miscellaneous Notes * Telephone Encounter - Rachel Matamoros RN - 05/15/2023 8:55 AM EST Attempted to call for pre anesthesia evaluation. No answer. Voice mail left requesting return call documented in this encounter Plan of Treatment Upcoming Encounters Date Type Department Care Team (Late st Contact Info) Description 05/07/2024 9:20 AM EST Office Visit Family [facility] [address] [facility] [place] [address] Shweta Doherty MD [address] [place] [address] 05/07/2024 10:00 AM EST Appointment Radiology, [address] [address] Health Maintenance Due Date Last Done Comments [...]
--- OUTSIDE RECORDS SUMMARY | 2023-08-30 19:51 | External Medical Summary | Summary of Care ---
Author Name Unknown Organization [facility] Address [address] [place] [address] Phone [phone] Care Team Providers Care Nitrocellulose Operator Name Role Phone Unavailable Primary Care Provider Unavailabl e Reason for Visit * Reason Onset Date Comments Test Results 08/30/2023 Encounter Details Date Type Department Care Team (Late st Contact Info) Description 08/30/2023 Telephone Family Practice [facility] [address] [facility] [address] Caitlyn Sanon MD [address] [place] [address] Test Results Allergies No known active allergiesdocumented [...] encounter Miscellaneous Notes * Telephone Encounter - Caitlyn Sanon MD - 08/30/2023 3:30 PM EDT CMP nml. [facility] ER nurse Marilee notified. * Telephone Encounter - Malika Taylor LPN [...] 05/07/2024 9:20 AM EST Office Visit Family [facility] [address] [place] [address] Shweta Doherty MD [address] [place] [address] 05/07/2024 10:00 AM EST Appointment Radiology, [facility] [address] [place] [address] Health Maintenance Due Date Last Done Comments Hepatitis B (1 of 3 - 19+ 3-dose series) 1996 Cologuard 2022 Colonoscopy 2022 Colorectal Cancer Screening 2022 Fecal Occult Blood Test 2022 Sigmoidoscopy 2022 COVID-19 Vaccine (2022- season) 2023 Influenza Vaccine (FLU shot) (#1) [...]
--- OUTSIDE RECORDS SUMMARY | 2023-08-30 19:51 | External Medical Summary | Summary of Care ---
Author Name Unknown Organization [facility] Address [address] [place] [address] Phone [phone] Care Team Providers Care Transport Tech Name Role Phone Unavailable Primary Care Provider Unavailabl e Reason for Visit * Reason Onset Date Comments Test Results 05/10/2023 Encounter Details Date Type Department Care Team (Late st Contact Info) Description 05/10/2023 Telephone Family Practice [facility] [address] [facility] [place] [address] Edwardo Lamas CRNP [address] [place] [address] Test Results Allergies No known active allergiesdocumented as of this encounter (statuses as of 05/12/2023) Medications Medication Sig Dispensed Refills Start Date [...] as of this encounter (statuses as of 05/12/2023) Active Problems Problem Noted Date Diagnosed Date Encounter for supervision of other normal pregna ncy 11/21/2006 Overview: ICD-10 update of inactive term NONE 08/05/2003 documented as of this encounter (statuses as of 05/12/2023) Immunizations Name Administration Dates Next Due TDAP [...] encounter Miscellaneous Notes * Telephone Encounter - Jelena Elizabeth LPN - 05/12/2023 1:07 PM EST Patient is aware and verbalizes understanding. * Telephone Encounter - Juan J Blanca RN - 05/12/2023 9:40 AM EST Called, left message for patient to return call to the dedicated nurse call center. Please see Edwardo's previous message. * Telephone Encounter - Edwardo Lamas CRNP - 05/10/2023 6:39 PM EST Please call patient that her mammogram was normal. Recommend to f/u with her pcp documented in this encounter Plan of Treatment Upcoming Encounters Date Type Department Care Team (Latest Contact Info) Description 05/24/2023 9:20 AM EST Office Visit Family Practice [facility] 132 [facility] [place] [address] SeptemberPedrito MD [address] [facility] [id number] 05/27/2023 9:30 AM EST Hospital Encounter [facility], Endoscopy Room [facility] [address] [place] [phone] Shelby Silva, DO [address] [place] [address] 05/27/2023 9:30 AM EST - 05/27/2023 10:00 AM EST Surgery ENDO [facility], Endoscopy Room [facility] [address] [place] [phone] Shelby Silva, DO [address] [place] [address] ESOPHAGOGASTRODUODENOSCOPY (EGD), FLEXIBLE, TRANSORAL, DIAGNOSTIC Scheduled Procedures Name Priority Associated Diagnoses Date/Ti pr ESOPHAGOGASTRODUODENOSCOPY ( EGD), FLEXIBLE, TRANSORAL, DIAGNOSTIC Pharyngeal dysphagia 05/27/2023 9:30 AM EST Health Maintenance Due Date Last Done Comments [...]
--- OUTSIDE RECORDS SUMMARY | 2023-08-30 19:51 | External Medical Summary | Summary of Care ---
Author Name Unknown Organization [facility] Address [address] [place] [address] Phone [phone] Care Team Providers Care Line Construction Supervisor Name Role Phone Unavailable Primary Care Provider Unavailabl e Reason for Visit * Reason Onset Date Comments Appointment 08/30/2023 Colonoscopy Encounter Details Date Type Department Care Team (Late st Contact Info) Description 08/30/2023 Telephone General Internal Medicine [facility] [address] [facility] [place] [address] Caitlyn Sanon MD [address] [place] [address] Appointment (Colonoscopy) Allergies No known active allergiesdocumented as of [...] encounter Miscellaneous Notes * Telephone Encounter - Laureen Winter OSA - 08/30/2023 1:30 PM EDT Please call patient to schedule Colonoscopy at [facility]. Thank you. documented in this encounter Plan of Treatment Upcoming Encounters Date Type Department Care Team (Late st Contact Info) Description 05/07/2024 9:20 AM EST Office Visit Family Practice [facility] [address] [place] [address] Shweta Doherty MD [address] [place] [address] 05/07/2024 10:00 AM EST Appointment Radiology, [place] [id number] [place], [place] [phone] Health Maintenance Due Date Last Done Comments Hepatitis B (1 of 3 - 19+ 3-dose series) 1996 Cologuard 2022 Colonoscopy 2022 Colorectal Cancer Screening 2022 Fecal Occult Blood Test 2022 Sigmoidoscopy 2022 COVID-19 Vaccine ( - season) 2023 Influenza Vaccine (FLU shot) (#1) [...]
--- OUTSIDE RECORDS SUMMARY | 2023-08-30 19:51 | External Medical Summary ---
Author Name Unknown Address Unknown Organization [facility] [place] [address] Laboratory Report Ordering Provider Test Date Status ZAKIYA BALLARD 08/30/2023 13:38:10 Final Observation Date Value Abnormality Reference (Units ) Status WBC, Total 08/30/2023 13:38:10 7.43 4.00-10.80 (K/uL) Final RBC 08/30/2023 13:38:10 3.78 3.85-5.15 (M/uL) Final Hemoglobin 08/30/2023 13:38:10 5.8 Below lower panic limits 12.0-15.3 (g/dL) Final Results rechecked.
null HCT 08/30/2023 13:38:10 22.1 Below low normal 36. 0-45.2 (%) Final MCV 08/30/2023 13:38:10 58.5 81.5-97.5 (fL) Final MCH 08/30/2023 13:38:10 15.3 27.0-34.0 (pg) Final MCHC 08/30/2023 13:38:10 26.2 32.0-36.0 (g/dL) Final RDW 08/30/2023 13:38:10 20.0 11.5-15.5 (%) Final Platelets 08/30/2023 13:38:10 413 Above high normal 14 0-400 (K/uL) Final MPV 08/30/2023 13:38:10 9.4 6.6-11.1 ( fL) Final Performing Location [facility] [place] [address]
--- OUTSIDE RECORDS SUMMARY | 2023-08-30 19:51 | External Medical Summary | Summary of Care ---
Author Name Unknown Organization [facility] Address [address] [place] [address] Phone [phone] Care Team Providers Care Product Owner Name Role Phone Unavailable Primary Care Provider Unavailabl e Reason for Visit * Reason Comments Outpatient Testing Encounter Details Date Type Department Care Team (Late st Contact Info) Description 08/30/2023 1:40 PM EDT Laboratory Laboratory, [facility] 132 [facility] [phone] [facility] [address] [place] [address] Colon cancer screening; Schatzki's ring; Gastroesophageal reflux disease without esophagitis; FH: colon cancer in relative diagnosed at >50 years old; BMI 30.0-30.9,adult Allergies No known active allergiesdocumented as of [...] on file documented as of this encounter Plan of Treatment Upcoming Encounters Date Type Department Care Team (Late st Contact Info) Description 05/07/2024 9:20 AM EST Office Visit Family Practice [facility] [address] [place] [address] Shweta Doherty MD [address] [place] [address] 05/07/2024 10:00 AM EST Appointment Radiology, [address] [address] Pending Results Name Type Priority Associated Diagnoses Date /Time CBC WITH WBC DIFFERENTIAL Lab Routine Colon cancer screening Schatzki's ring Gastroesophageal reflux disease without esophagitis FH: colon cancer in relative diagnosed at >50 years old 08/30/2023 1:38 PM EDT COMPREHENSIVE METABOLIC PANEL Lab Routine Colon cancer screening Schatzki's ring Gastroesophageal reflux disease without esophagitis BMI 30.0-30.9,adult 08/30/2023 1:38 PM EDT CBC Lab Routine Colon cancer screening Schatzki's ring Gastroesophageal reflux disease without esophagitis FH: colon cancer in relative diagnosed at >50 years old 08/30/2023 1:38 PM EDT DIFFERENTIAL, AUTOMATED Lab Routine Colon cancer screening Schatzki's ring Gastroesophageal reflux disease without esophagitis FH: colon cancer in relative diagnosed at >50 years old 08/30/2023 1:38 PM EDT DIFFERENTIAL, TECHNOLOGIST REVIEW Lab Routine Colon cancer screening Schatzki's ring Gastroesophageal reflux disease without esophagitis FH: colon cancer in relative diagnosed at >50 years old 08/30/2023 1:38 PM EDT Health Maintenance Due Date Last Done Comments [...] this encounter Visit Diagnoses Diagnosis Colon cancer screening Special screening for malignant neoplasms, colon Schatzki's ring Congenital tracheoesophageal fistula, esophageal atresia and stenosis Gastroesophageal reflux disease without esophagitis Esophageal reflux FH: colon cancer in relative diagnosed at >50 years old BMI 30.0-30.9,adult Body Mass Index 30.0-30.9, adult documented in this encounter
--- OUTSIDE RECORDS SUMMARY | 2023-08-30 19:51 | External Medical Summary ---
Author Name Unknown Address Unknown Organization [facility] [address] - [address] [place] [address] Laboratory Report Ordering Provider Test Date Status ZAKIYA BALLARD 08/30/2023 13:38:10 Final Observation Date Value Abnormality Reference (Units ) Status SYNC LEUKOCYTES IN BLOOD BY AUTOMATED COUNT 08/30/2023 13:38:10 7.43 4.00-10.80 (K/uL) Final Segs 08/30/2023 13:38:10 63.3 40.0-75.0 (%) Final Lymphs % 08/30/2023 13:38:10 18.4 18.0-42.0 (%) Final Monos 08/30/2023 13:38:10 8.2 1.0-11.0 (%) Final Eosinophils 08/30/2023 13:38:10 9.1 Above high normal 0.0-6.0 (%) Final Basos 08/30/2023 13:38:10 1.0 0.0-2.0 (%) Final Absolute Segs 08/30/2023 13:38:10 4.61 1.80-7.70 (K/uL) Final Lymphs, absolute 08/30/2023 13:38:10 1.34 1.00-4.80 (K/ul) Final Monos, Abs 08/30/2023 13:38:10 0.60 0.00-1.10 (K/uL) Final Eos, Abs 08/30/2023 13:38:10 0.66 0.00-0.70 (K/uL) Final Basos, Abs 08/30/2023 13:38:10 0.07 0.00-0.20 (K/uL) Final Performing Location [facility] [place] [address]
--- OUTSIDE RECORDS SUMMARY | 2023-08-30 19:51 | External Medical Summary ---
Author Name Unknown Address Unknown Organization [facility] [address] - [address] [place] [address] Laboratory Report Ordering Provider Test Date Status ZAKIYA BALLARD 08/30/2023 13:38:10 Final Observation Date Value Abnormality Reference (Units ) Status Nucleated erythrocytes/100 leukocytes [Ratio] in Blood by Automated count 08/30/2023 13:38:10 Final Ovalocytes [Presence] in Blood by Light microscopy 08/30/2023 13:38:10 Moderate Abnormal None Seen Final Schistocytes 08/30/2023 13:38:10 Few Abnormal None Seen Final Performing Location [facility] [address] [place] [address]
--- OUTSIDE RECORDS SUMMARY | 2023-08-30 19:51 | External Medical Summary | Summary of Care ---
Author Name Unknown Organization [facility] Address [address] [place] [address] Phone [phone] Care Team Providers Care Master Tax Advisor Name Role Phone Unavailable Primary Care Provider Unavailabl e Encounter Details Date Type Department Care Team (Late st Contact Info) Description 05/13/2023 Telephone Gastroenterology, [facility] [address] [place] [address] Services, Scheduling [address] [place] [address] Allergies No known active allergiesdocumented as of this encounter (statuses as of 08/12/2023) Medications Medication Sig Dispensed Refills Start Date [...] as of this encounter (statuses as of 08/12/2023) Active Problems Problem Noted Date Diagnosed Date Encounter for supervision of other normal pregna ncy 11/21/2006 Overview: ICD-10 update of inactive term NONE 08/05/2003 documented as of this encounter (statuses as of 08/12/2023) Immunizations Name Administration Dates Next Due TDAP [...] encounter Miscellaneous Notes * Telephone Encounter - Audi Martini OSA - 05/13/2023 5:30 PM EST Sadia pt got a call to rescheduled her procedure and called in to do so. Please advise. Thank you documented in this encounter Plan of Treatment Upcoming Encounters Date Type Department Care Team (Late st Contact Info) Description 05/07/2024 9:20 AM EST Office Visit Family [facility] 132 [facility] [place] [address] Shweta Doherty MD [address] [place] [address] 05/07/2024 10:00 AM EST Appointment Radiology, [place] [address] [place], [place] [phone] Health Maintenance Due Date Last Done Comments [...]
[2023-08-30] MEDS ORDERED: ACETAMINOPHEN 325 MG TAB PO PRN (20:04)
[2023-08-31 07:26] LABS: Hematocrit (blood only) 25.8 % (37.0-47.0); Hemoglobin 7.3 g/dl (12.0-16.0); Mean Corpuscular Hgb Conc 28.3 g/dL (32.0-36.0); Mean Corpuscular Volume 63.5 fL (80.0-100.0); Mean Platelet Volume 9.7 fL (9.4-12.4); Platelet Count 310 K/uL (130-400); RDW Coefficient of Variation 25.8 % (11.5-14.5); Red Blood Count 4.06 M/uL (4.20-5.40); White Blood Count 6.87 K/ul (4.8-10.8)
[2023-08-31 07:31] LABS: Folate (Folic Acid),Ser orPlas > 22.30 ng/ml (>5.38); Vitamin B12 263 pg/ml (180-914)
[2023-08-31 07:50] LABS: Ferritin 9.1 ng/ml (8-388)
[2023-08-31 08:25] LABS: Anisocytosis Present; Basophils # (auto) 0.07 K/uL (0.00-0.20); Eosinophils # (auto) 0.69 K/uL (0.00-0.50); Hypochromasia Present; Immature Granulocytes # (auto) 0.02 K/uL (0.01-0.20); Immature Granulocytes % (auto) 0.3 %; Lymphocytes # (auto) 1.36 K/uL (1.20-3.40); Lymphocytes % (auto) 19.8 %; Microcytosis Present; Monocytes # (auto) 0.72 K/uL (0.11-0.59); Monocytes % (auto) 10.5 %; Neutrophils # (auto) 4.01 K/uL (1.40-6.50); Neutrophils % (auto) 58.4 %; Polychromasia 1+; Reticulocyte % 0.81 % (0.50-2.00); Tear Drop Cells 1+
--- NOTE | 2023-08-31 11:34 | Discharge Summary ---
Date of Service August 31, 2023 Admission HPI Per Admitting Provider History obtained from interview with the patient and chart review. Past medical history of Schatzki's ring status post dilation(last endoscopy in May 2023mild Schatzki's ring) Patient was referred by her primary care doctor after outpatient lab work showed a hemoglobin of 5.8. Patient saw her primary care today for referral of colonoscopy. CBC and CMP was done; patient was found to have hemoglobin of 5.8, microcytic. She was referred to the ED Patient reports occasional headache, mild dizziness occasionally. Denies any chest pain, shortness of breath or fatigue. She does not report any black stool, bright red blood per rectum. She reports prolonged menstrual period 7 days, which are regular. She reports that her menses has been similar for several years. Last endoscopy was in May 2023normal esophagus, GE junction, stomach. No previous endoscopy in 01/2023 showed moderate Schatzki's ring which was dilated. On presentation to the ED, her vitals were stable she was saturating well on tomi m air. Repeat CBC showed hemoglobin of 5.8, with low MCV. CMP was unremarkable. Patient was referred for admission to the hospital Past medical history; as above Past surgical history; no previous surgeries Social historynon-smoker, does not consume alcohol Family historymother with breast cancer, father with colon cancer Admission Exam Per Admitting Provider Constitutional: WD/WN, vitals as above, NAD, sitting up in bed, pleasant, conversing easily Respiratory: Bilateral vesicular breath sound Cardiovascular: RRR, no murmur, no edema Vessels: no JVD or carotid bruit Chest: normal inspection of chest Abdomen: normal bowel sounds, soft, nontender, no hepatosplenomegaly Musculoskeletal: no cyanosis or clubbing, extremities motor strength 5/5 Skin: no rashes, warm and dry normal turgor Neurologic: PERRL, EOMI, accommodation nl, no face palsy, no dysarthria CN's II- XI intact bilaterally and moves all extremities Psychiatric: A+Ox3, euthymic affect Principal Diagnosis Iron deficiency anemia Discharge Exam Constitutional: WD/WN, vitals as above, NAD, sitting up in bed, pleasant, conversing easily Respiratory: Bilateral vesicular breath sound Cardiovascular: RRR, no murmur, no edema Vessels: no JVD or carotid bruit Chest: normal inspection of chest Abdomen: normal bowel sounds, soft, nontender, no hepatosplenomegaly Musculoskeletal: no cyanosis or clubbing, extremities motor strength 5/5 Skin: no rashes, warm and dry normal turgor Neurologic: PERRL, EOMI, accommodation nl, no face palsy, no dysarthria CN's II- XI intact bilaterally and moves all extremities Psychiatric: A+Ox3, euthymic affect Discharge Data Allergies Allergy/AdvReac Type Severity Reaction Status Date / Time strawberry Allergy Intermediate HIVES, Verified 07/07/09 02:59 EMESIS Consultations 08/30/23 17:20 ED Decision to Admit Stat Hospital Course (1) Anemia: Patient was referred by her primary care doctor after outpatient lab work showed a hemoglobin of 5.8. Reports prolonged menstrual period of 7 days. Repeat CBC showed hemoglobin of 5.8, with low MCV. CMP was unremarkable. Last endoscopy was in May 2023normal esophagus, GE junction, stomach. No previous endoscopy in 01/2023 showed moderate Schatzki's ring which was dilated. Suspect iron deficiency anemia due to chronic menstrual loss. Iron profile; Serum iron is 19 mcg per DL Ferritin9.1 Transferrin test 254 Mg/DL Vitamin B12 263 Folate within normal limits During the hospitalization, patient was transfused 2 units of packed RBC Repeat hemoglobin in a.m. was 7.3 g/dL Discussed with the patient regarding workup; she will need gynecological referral for excessive menstrual bleed and GI referral for colonoscopy. She agreed to follow-up with her primary care doctor as outpatient and get those done. She was prescribed iron tablets and vitamin B12 supplement at discharge. Patient to follow-up with her primary care doctor next week Please note the above document was generated using voice recognition software. It may contain grammatical, syntax or spelling errors. Any formal questions or concerns about the content, text or information contained within the body of this dictation should be directly addressed to the provider for clarification Total Time Total Time Spent Total Time Spent (In Minutes): 45 Total Time Includes: Examination of the Patient, Discharge Planning, Medication Reconciliation, Communication With Other Providers and Other Discharge Plan Discharge Items Patient Disposition: Home - Self-Care Reason For Visit: ANEMIA Discharge Diagnosis: Iron deficiency anemia Activity: Resume your previous activity Non-emergency contact: Primary Care Provider Call non-emergency contact if: you have any medication questions and your symptoms worsen Follow-up/Referrals: Shweta Doherty MD [Primary Care Provider] - Diet: Regular Addtl Attending Provider Instructions: You were admitted to the hospital due to low hemoglobin level(anemia). Your hemoglobin at the time of admission was 5.8 g/dL. You were transfused blood during the hospitalization. Your hemoglobin at the time of discharge is 7.3 g/dL. The likely cause for your low hemoglobin is blood loss during the menstrual cycle or GI loss. An appointment with your primary care doctor will be set up for sometime later this week or next week. You will need gynecology referral and colonoscopy in the future to evaluate the cause of iron loss further. You are prescribed iron tablets to be taken once a day. You might experience constipation and GI discomfort while you are taking the iron tablets. You can take [id number] laxative to prevent constipation. Your vitamin B12 level where on low normal side. You are prescribed vitamin B12 capsules as well. Please take them once a day. Pending Studies at Discharge: No Stand-Alone Forms: My [facility] [employer], Work/School Release, Smoking Cessation Medications and DC Order Prescriptions: New ferrous sulfate [Iron (ferrous sulfate)] 325 mg (65 mg iron) tablet 325 mg PO DAILY Qty: 30 0RF cyanocobalamin (vitamin B-12) 1,000 mcg capsule 1,000 mcg PO DAILY Qty: 30 0RF Continued omeprazole 20 mg Capsule,Delayed Release(Dr/Ec) 20 mg PO DAILY Discharge Orders: Discharge Order (Routine); Ordered 08/31/23 Ordered By: Milton Miranda Admission Data Admit Date/Time: 08/30/23 17:42 Attending Provider: Milton Miranda Admit Provider: Milton Miranda Primary Care Provider: Shweta Doherty Other Providers: Kobe Johns Other Interventions: Discharge Summary Assessment (RN) Last Done: 08/31/23 10:28
== END 2023-08-31 11:30 | disposition home or self-care (01) | DRG 812 ==
LOC: ED 14:54 → 3N 17:42